=== PATIENT | male | born 1980 | race American Indian/Alaskan Native ===

== ENCOUNTER 2019-06-23 08:03 | Emergency (ER) | payer OTHER ==
--- NOTE | 2019-06-23 09:03 | Emergency Department Report ---
<KATIE RDZ - Last Filed: 06/23/19 10:16> ED Upper Extremity Inj HPI - General Chief Complaint: Extremity Injury, Upper Stated Complaint: SMASHED FINGER Time Seen by Provider: 06/23/19 08:37 Source: patient Mode of arrival: Ambulatory Limitations: No Limitations - History of Present Illness MD Complaint: Injury to:: right, finger -: This morning Other Injuries: none Handedness: right Place: work Severity scale (0 -10): 7 Improves With: immobilization Worsens With: movement of extremity Context: crush, other (smash) Associated Symptoms: denies other symptoms - Related Data Previous Rx's Medication Instructions Recorded Last Taken Type Acetaminophen/Codeine [Tylenol 1 tab PO Q6H #8 tab 06/23/19 Unknown Rx /Codeine # 3 tab] Ibuprofen [Motrin 800 MG tab] 800 mg PO TID #40 tablet 06/23/19 Unknown Rx Allergies Allergy/AdvReac Type Severity Reaction Status Date / Time Sulfa (Sulfonamide Allergy Anaphylaxis Verified 06/23/19 08:09 Antibiotics) ED Review of Systems Comment: All other systems reviewed and negative ED Past Medical Hx - Social History Smoking Status: Current Every Day Smoker Substance Use Type: None - Medications Home Medications: Home Medications Medication Instructions Recorded Confirmed Last Taken Type Acetaminophen/Codeine [Tylenol 1 tab PO Q6H #8 tab 06/23/19 Unknown Rx /Codeine # 3 tab] Ibuprofen [Motrin 800 MG tab] 800 mg PO TID #40 tablet 06/23/19 Unknown Rx ED Physical Exam - General Limitations: No Limitations General appearance: alert, in no apparent distress - Head Head exam: Present: atraumatic, normocephalic - Eye Eye exam: Present: normal appearance - ENT ENT exam: Present: mucous membranes moist - Neck Neck exam: Present: normal inspection - Respiratory Respiratory exam: Present: normal lung sounds bilaterally. Absent: respiratory distress - Cardiovascular Cardiovascular Exam: Present: regular rate, normal rhythm. Absent: systolic murmur, diastolic murmur, rubs, gallop - GI/Abdominal GI/Abdominal exam: Present: soft, normal bowel sounds - Rectal Rectal exam: Present: deferred - Extremities Exam Extremities exam: Present: normal inspection - Back Exam Back exam: Present: normal inspection - Neurological Exam Neurological exam: Present: alert, oriented X3 - Psychiatric Psychiatric exam: Present: normal affect, normal mood - Skin Skin exam: Present: warm, dry, intact, normal color. Absent: rash ED Medical Decision Making - Radiology Data Radiology results: report reviewed, image reviewed Fluoro Time In Minutes: Right 4TH FINGER HISTORY: Trauma, pain COMPARISON: None. TECHNIQUE: 3 views of the right 4th finger were obtained including PA hand radiograph. FINDINGS: Bones: Comminuted, mildly displaced fracture at the tuft of the distal phalanx of the ring finger. Joint spaces: Maintained. Soft tissues: No significant abnormality. Additional findings: None. IMPRESSION: 1. Comminuted tuft fracture of the distal phalanx. Signer Name: Bridger Schaefer MD Signed: 06/23/2019 9:32 AM Workstation Name: [id number] Transcribed By: STUART Dictated By: Bridger Schaefer MD Electronically Authenticated By: Bridger Schaefer MD Signed Date/Time: 06/23/19 0932 - Medical Decision Making 39-year-old male presents with a ride for digit distal phalanx fracture. Patient received pain medication in the ED. X-ray of the hand shows this. For finger splint applied to the finger. This patient follow-up with orthopedic doctor. Plan S signs are normal patient is in no acute distress ED Disposition Clinical Impression: Fracture of distal phalanx of right ring finger Disposition: DC-01 TO HOME OR SELFCARE Is pt being admited?: No Does the pt Need Aspirin: No Condition: Stable Instructions: Finger Fracture (ED) Additional Instructions: Make sure to follow up with the primary care physician as discussed. Take all your medications as you've been prescribed. If you have any worsening symptoms or develop new symptoms please return to ED immediately. Prescriptions: Ibuprofen [Motrin 800 MG tab] 800 mg PO TID #40 tablet Acetaminophen/Codeine [Tylenol /Codeine # 3 tab] 1 tab PO Q6H #8 tab Referrals: [facility] [Provider Group] - 3-5 Days RAMIRO SEGAL MD [Staff Physician] - 3-5 Days FIDEL ACEVEDO MD [Primary Care Provider] - 3-5 Days Forms: Accompanied Note, Work/School Release Form(ED) Time of Disposition: 10:17 <CHRIS HILLIARD - Last Filed: 06/23/19 10:31> ED Review of Systems ROS: Stated complaint: SMASHED FINGER Other details as noted in HPI ED Course Vital Signs 06/23/19 08:10 Temperature 98.5 F Pulse Rate 73 Respiratory 18 Rate Blood Pressure 148/98 [Left] O2 Sat by Pulse 98 Oximetry ED Medical Decision Making - Radiology Data Radiology results: image reviewed Critical Care Time: No Critical care attestation.: If time is entered above; I have spent that time in minutes in the direct care of this critically ill patient, excluding procedure time.
[2019-06-23] MEDS ORDERED: NORCO 5/325 PO ONE (09:07)
[2019-06-23 09:17] VITALS: BP 148/98
[2019-06-23] MEDS ORDERED: IBUPROFEN PO ONE (09:22)
--- NOTE | 2019-06-23 09:37 | XRay Report ---
Right 4TH FINGER HISTORY: Trauma, pain COMPARISON: None. TECHNIQUE: 3 views of the right 4th finger were obtained including PA hand radiograph. FINDINGS: Bones: Comminuted, mildly displaced fracture at the tuft of the distal phalanx of the ring finger. Joint spaces: Maintained. Soft tissues: No significant abnormality. Additional findings: None. IMPRESSION: 1. Comminuted tuft fracture of the distal phalanx. Signer Name: Bridger Schaefer MD Signed: 06/23/2019 9:32 AM Workstation Name: [id number]
== END 2019-06-23 10:49 | disposition home or self-care (01) ==
LOC: ED 08:03
DX: S62.634A Displaced fracture of distal phalanx of right ring finger, initial encounter for closed fracture (principal); F17.200 Nicotine dependence, unspecified, uncomplicated; Z88.2 Allergy status to sulfonamides; W23.1XXA Caught, crushed, jammed, or pinched between stationary objects, initial encounter; Y93.89 Activity, other specified; Y92.69 Other specified industrial and construction area as the place of occurrence of the external cause; Y99.8 Other external cause status
CPT/HCPCS: 36415; 80307; 99283